=== PATIENT | male | born 1960 | race Caucasian/White ===

== ENCOUNTER 2021-10-05 15:55 | Inpatient (IN) | payer BC ==
[~2021-10-05] VITALS: Ht 167.6 cm; Wt 181.4 kg
[2021-10-05] MEDS ORDERED: HORIZANT300 MG (16:17)
[2021-10-05] MEDS ORDERED: MIRTAZAPINE15 M1 (16:18)
[2021-10-05] MEDS ORDERED: TIROSINT25 MCG (16:18)
[2021-10-05] MEDS ORDERED: FINASTERIDE5 MG (16:18)
[2021-10-05] MEDS ORDERED: LASIX80 MG (16:18)
[2021-10-05] MEDS ORDERED: PIPERACIL-TA3.375 GM (16:18)
[2021-10-05] MEDS ORDERED: LANTUS SOL100 UNIT/1 (16:19)
[2021-10-05] MEDS ORDERED: TAMS0.4C (16:19)
[2021-10-05] MEDS ORDERED: HUMALOG100 UNIT/2 (16:19)
[2021-10-05] MEDS ORDERED: COZAAR100 MG (16:20)
[2021-10-05] MEDS ORDERED: MIRCERA30 MCG/0.3 (16:20)
[2021-10-05] MEDS ORDERED: LINEZOLID600 MG/300 (16:21)
[2021-10-05] MEDS ORDERED: ATORVASTATIN CA80 MG (16:21)
[2021-10-05] MEDS ORDERED: PLAVIX75 MG (16:21)
[2021-10-05] MEDS ORDERED: ABILIFY2 MG (16:21)
[2021-10-05] MEDS ORDERED: RENVELA0.8 GM (16:21)
--- NOTE | 2021-10-05 16:23 | NUR ---
SE RECIBE PACIENTE MASCULINO, ALERTA Y ORIENTADO, QUE VIENE EN AMBULANCIA. FAMILIAR REFIERE PACIENTE TIENE DIFICULTAD AL RESPIRAR DESDE CLARENCE. SE ACOMODA PACIENTE EN AREA DE CRITICO, EMILE#1. SE CONECTA A MONITOR CARDIACO Y OXIMETRIA DE PULSO, SAT: 100%. SE CANALIZA EN BRAZO SERGIO, CON ANGIO #18, AREA THA DE EDEMA Y/O ENROJECIMIENTO, PATENTE AL MOMENTO. SE MIDE S/V. SE REPORTAN LOS MISMOS. PACIENTE REFIERE DOLOR EN ESPALDA BAJA Y AMBAS PIERNAS. SE MANTIENE BAJO OBSERVACION POR CAMBIOS.
--- NOTE | 2021-10-05 23:36 | NUR ---
SE RECIBE PTE ALERTA Y ORIENTADO EN GWENDOLYN 3 ESFERAS. SE OBSERVA PTE EN CAMA BAJA CON BARANDAS ELEVADAS POR SEGURIDAD. PTE CONECTADO A MONITOR CARDIACO CON OXIMETRIA DE PULSO CONTINUA, PTE CON NON REBREATHING AL 100%, SATURANDO 100%, CANALIZADO EN PERIFERAL MANO RT CON ANGIO #18 H/L PATENTE. AREA DE VENOPUNCION THA DE EDEMA Y ERITEMA. PTE CON DRENAJE PERITONEAL TAPADO, FOLLEY CATHETER DRENANDO A GRAVEDAD ORINA COLOR AMARILLO LUIZA. SE LE REALIZA DEXTRO EN 165MG/DL. SE MIDEN SIGNOS VITALES Y SE DOCUMENTAN. SE MANTIENE BAJO OBSERVACION POR CAMBIOS SIGNIFICATIVOS
--- NOTE | 2021-10-06 07:25 | NUR ---
SE RECIBE PACIENTE EN AREA DE CRITICO CAMA #1 CON BARANDAS ELEVADAS POR PRECAUCION, CONECTADO A MONITOR, S/V ESTABLES Y DOCUMENTADOS.SE OBSERVA CON BUEN PATRON RESPIRATORIO, RECIBIENDO O2 ASISTIDO POR NONREBREDING PRESENTANDO SAT DE O2 EN 100%. PACIENTE CON H/L EN ANTEBRAZO RT, PATENTE THA DE EDEMAS Y ENROJECIMIENTO. PERSONAL MEDICO SE ENCUENTRA PRESENTANDO SIMRAN DE PACIENTE A INSTUTICONES ALTERNATIVAS QUE CUENTEN CON SERVICIO DE DIALISIS PERITONEAL. SE MANTIENE PACIENTE EN OBSERVACION POR CAMBIOS.
--- NOTE | 2021-10-06 09:56 | NUR ---
PACIENTE REFIERE TENER DOLOR EN AMBAS EXTREMIDADES, SE LE REMUEVEN MEDIAS DE AMBAS PIERNAS Y SE OBSERVAN GASAS COLOCADAS EN AMBAS PIERNAS, SE PROCEDE A REMOVER GASAS LAS CUALES SE OBSERVAN CON SECRECIONES AMARILLENTAS Y PURULENTAS. SE NOTIFICA A DRA VIRK Y SE LE HACE REFERIDO A SKIN TEAM. DRA VIRK ORDENA DIETA DIABETICA A PACIENTE.
--- NOTE | 2021-10-06 11:18 | NUR ---
PACIENTE INGIERE DIETA ORDENADA. PERSONAL DE SKIN TEAM REALIZA EVALUACION A PACIENTE Y CURACION DE ABRACIONES.
--- NOTE | 2021-10-06 12:40 | NUR ---
PACIENTE ES EVALUADO POR EL DR. GARCIA NEFROLOGO EL CUAL REFIERE QUE EL MISMO VA A SER ADMITIDO PARA RECIBIR HEMODIALISIS POR MEDIO DE FISTULA QUE PACIENTE YA POSEE EN BRAZO LT. DRA NEGRETE ORDENA CONSULTA CON MEDICO DE MEDICINA INTERNA EL DR. STEPHANIA LEPE. PENDIENTE DICHA CONSULTA.
--- NOTE | 2021-10-06 15:00 | NUR ---
DR. BOUDREAUXA DA ORDEN DE PREPARAR 2 UNIDADES DE PRBC Y TRANSFUNDIR. RN DE DIALISIS VIENE Y EVALUA PACIENTE EL CUAL LLAMA A DR GARCIA Y CONSULTA CON EL MISMO SI SE LE VA A TRANSFUNDIR EL MEGAN DE HOY Y LE DA ORDEN AL MISMO DE TRANSFUNDIR EL MEGAN DE MANANA INTRADIALISS. SE ORIENTA A PACIENTE Y ESPOSA Y SE EJECUTA ORDEN MEDICA. SE COLECTAN MUESTRAS DE MELISSA Y SE ENVIAN A BANCO DE MELISSA. SE LLAMA PREVIAMENTE AL SR. BABCOCK A BANCO DE M[place]IS[place] PARA VERIFICAR SI PACIENTE TIENE HX EN BANCO EL CUAL REFIERE QUE NO. SE ENTREGA PACIENTE A PROXIMO TURNO PARA CONTINUIDAD EN TX.
== END 2021-10-09 11:48 | disposition home or self-care (01) | DRG 291 ==
LOC: ER 15:55 → ICU 10-06 15:48 → MEDJ 10-06 15:48 → ICU-2 10-06 15:48 → ICU 10-06 16:04 → MEDJ 10-08 11:53 → ICU 10-08 12:18 → MEDJ 10-08 14:04
PROVIDERS: ADMIT Internal Medicine; ATTEND Internal Medicine
PROC: 4A033R1 Measurement of Arterial Saturation, Peripheral, Percutaneous Approach (ICD-10-PCS; 2021-10-05)
PROC: 5A1D70Z Performance of Urinary Filtration, Intermittent, Less than 6 Hours Per Day (ICD-10-PCS; principal; 2021-10-06)
PROC: 5A1D70Z Performance of Urinary Filtration, Intermittent, Less than 6 Hours Per Day (ICD-10-PCS; 2021-10-07)
PROC: 30243N1 Transfusion of Nonautologous Red Blood Cells into Central Vein, Percutaneous Approach (ICD-10-PCS; 2021-10-07)
PROC: 3E0F7SF Introduction of Other Gas into Respiratory Tract, Via Natural or Artificial Opening (ICD-10-PCS; 2021-10-07)
PROC: 5A1D70Z Performance of Urinary Filtration, Intermittent, Less than 6 Hours Per Day (ICD-10-PCS; 2021-10-08)
DX: I13.2 Hypertensive heart and chronic kidney disease with heart failure and with stage 5 chronic kidney disease, or end stage renal disease (principal); N18.6 End stage renal disease; T85.611A Breakdown (mechanical) of intraperitoneal dialysis catheter, initial encounter; D64.9 Anemia, unspecified; E11.22 Type 2 diabetes mellitus with diabetic chronic kidney disease; I50.9 Heart failure, unspecified; E87.79 Other fluid overload; E11.21 Type 2 diabetes mellitus with diabetic nephropathy; I25.10 Atherosclerotic heart disease of native coronary artery without angina pectoris; Y65.8 Other specified misadventures during surgical and medical care; Z20.822 Contact with and (suspected) exposure to COVID-19; Z79.4 Long term (current) use of insulin; Z99.2 Dependence on renal dialysis; Y92.018 Other place in single-family (private) house as the place of occurrence of the external cause; Z95.1 Presence of aortocoronary bypass graft